=== PATIENT | female | born 1980 | race African-American/Black ===

== ENCOUNTER 2016-07-19 08:00 | Emergency (ER) | payer BC ==
[2016-07-19] MEDS ORDERED: KETOROLAC TROMETHAMINE 60 MG/2 ML SDV IM ONE (08:45)
--- NOTE | 2016-07-19 10:00 | ER Document Report ---
[id number] PAIN Mode of Arrival: Ambulatory Information source: Patient Notes: 35-year-old female presents with complaints of low back pain in the right flank rating across the left. Patient denies any urinary complaints denies any nausea vomiting or diarrhea Recent denies any neurological deficits TRAVEL OUTSIDE OF THE [place] IN LAST 30 DAYS: No - HPI Onset: Yesterday Onset/Duration: Persistent Quality of pain: Achy Severity: Mild Pain Level: 1 Associated symptoms: Other Exacerbated by: Movement Relieved by: Denies Similar symptoms previously: No Recently seen / treated by doctor: No - Related Data Allergies/Adverse Reactions: No Known Allergies Allergy (Verified 07/19/16 08:04) Past Medical History - Social History Smoking Status: Current Every Day Smoker Cigarette use (# per day): No Chew tobacco use (# tins/day): No Smoking Education Provided: No Frequency of alcohol use: Occasional Drug Abuse: None Family History: Reviewed & Not Pertinent Patient has suicidal ideation: No Patient has homicidal ideation: No - Immunizations Hx Diphtheria, Pertussis, Tetanus Vaccination: No Review of Systems - Review of Systems Notes: REVIEW OF SYSTEMS: CONSTITUTIONAL : Denies fever, chills, or sweats. Denies recent illness. EENT: Denies eye, ear, throat, or mouth pain or symptoms. Denies nasal or sinus congestion or discharge. Denies throat, tongue, or mouth swelling or difficulty swallowing. CARDIOVASCULAR: Denies chest pain. Denies palpitations or racing or irregular heart beat. Denies ankle edema. RESPIRATORY: Denies cough, cold, or chest congestion. Denies shortness of breath, difficulty breathing, or wheezing. GASTROINTESTINAL: Denies abdominal pain or distention. Denies nausea, vomiting , or diarrhea. Denies blood in vomitus, stools, or per rectum. Denies black, tarry stools. Denies constipation. GENITOURINARY: Denies difficulty urinating, painful urination, burning, frequency, blood in urine, or discharge. MUSCULOSKELETAL: Low back pain SKIN: Denies rash, lesions or sores. HEMATOLOGIC : Denies easy bruising or bleeding. LYMPHATIC: Denies swollen, enlarged glands. NEUROLOGICAL: Denies confusion or altered mental status. Denies passing out or loss of consciousness. Denies dizziness or lightheadedness. Denies headache. Denies weakness or paralysis or loss of use of either side. Denies problems with gait or speech. Denies sensory loss, numbness, or tingling. Denies seizures. PSYCHIATRIC: Denies anxiety or stress. Denies depression, suicidal ideation, or homicidal ideation. ALL OTHER SYSTEMS REVIEWED AND NEGATIVE. Dictation was performed using [employer] voice recognition software PHYSICAL EXAMINATION: GENERAL: Well-appearing, well-nourished and in no acute distress. HEAD: Atraumatic, normocephalic. EYES: Pupils equal round and reactive to light, extraocular movements intact, sclera anicteric, conjunctiva are normal. ENT: Nares patent, oropharynx clear without exudates. Moist mucous membranes. NECK: Normal range of motion, supple without lymphadenopathy LUNGS: Breath sounds clear to auscultation bilaterally and equal. No wheezes rales or rhonchi. HEART: Regular rate and rhythm without murmurs ABDOMEN: Soft, nontender, nondistended abdomen. No guarding, no rebound. No masses appreciated. Musculoskeletal: Normal range of motion, no pitting or edema. No cyanosis. NEUROLOGICAL: Cranial nerves grossly intact. Normal speech, normal gait. Normal sensory, motor exams PSYCH: Normal mood, normal affect. SKIN: Warm, Dry, normal turgor, no rashes or lesions noted. Physical Exam - Vital signs Vitals: Temp Pulse Resp BP Pulse Ox 97.5 F 67 18 128/67 H 96 07/19/16 08:06 07/19/16 08:06 07/19/16 08:06 07/19/16 08:06 07/19/16 08:06 Course - Re-evaluation Re-evalutation: 07/19/16 16:21 Patient noted to have back pain, there is no midline tenderness no urinary complaints no cauda equina concerns. Patient will be treated symptomatically and is otherwise stable. After performing a Medical Screening Examination, I estimate there is LOW risk for EXPANDING OR RUPTURED ABDOMINAL AORTIC ANEURYSM, CAUDA EQUINA SYNDROME, EPIDURAL MASS LESION, or HERNIATED DISK CAUSING SEVERE SPINAL STENOSIS, thus I consider the discharge disposition reasonable. The patient and I have discussed the diagnosis and risks, and we agree with discharging home and close follow-up. We also discussed returning to the Emergency Department immediately if new or worsening symptoms occur with the understanding that symptoms and presentations can change. We have discussed the symptoms which are most concerning (e.g., saddle anesthesia, urinary or bowel incontinence or retention , changing or worsening pain) that necessitate immediate return. 07/19/16 16:35 - Vital Signs Vital signs: Temp Pulse Resp BP Pulse Ox 98.1 F 84 20 118/70 99 07/19/16 10:00 07/19/16 10:00 07/19/16 10:00 07/19/16 10:00 07/19/16 10:00 Discharge - Discharge Clinical Impression: Back pain Qualifiers: Back pain location: low back pain Chronicity: acute Back pain laterality: bilateral Sciatica presence: without sciatica Qualified Code(s): M54.5 - Low back pain Condition: Stable Disposition: HOME, SELF-CARE Instructions: Low Back Pain ([facility]) Additional Instructions: Follow up with your physician tomorrow for further care or return to the ED IMMEDIATELY if symptoms worsen or new concerns occur Prescriptions: Acetaminophen with Codeine [Tylenol #3 Tablet] 1 each PO Q4HP PRN #14 tablet PRN Reason: Prednisone [Deltasone 20 mg Tablet] 3 tab PO DAILY 5 Days
[2016-07-19 10:20] VITALS: BP 118/70
== END 2016-07-19 10:00 | disposition home or self-care (01) ==
LOC: ER 08:00
DX: M54.5 Low back pain (principal); F17.210 Nicotine dependence, cigarettes, uncomplicated
CPT/HCPCS: 99283; 96372; J1885

== ENCOUNTER 2016-12-23 07:07 | Emergency (ER) | payer SELFPAY ==
[2016-12-23] MEDS ORDERED: PREDNISONE 20 MG TABLET PO ONE (07:52)
[2016-12-23] MEDS ORDERED: NAPROXEN 250 MG TABLET PO ONE (07:52)
--- NOTE | 2016-12-23 07:53 | ER Document Report ---
ED General Pain - General Chief Complaint: Low Back Pain Stated Complaint: BACK PAIN Time Seen by Provider: 12/23/16 07:29 Mode of Arrival: Ambulatory Information source: Patient Notes: Is a 36-year-old obese female who presents to the ER today for low back pain, worse on the right side radiating down the right leg 2 weeks, then started on the left leg 2 days ago. She denies any injury. She states that she has had low back pain before but has never had radiation down the legs. Pt denies any bowel or bladder incontinence, sexual dysfunction, history of IV drug use, history of cancer, history of high blood pressure, any new injury, fever, chills , numbness or tingling. TRAVEL OUTSIDE OF THE [place] IN LAST 30 DAYS: No - Related Data Allergies/Adverse Reactions: No Known Allergies Allergy (Verified 12/23/16 07:17) Past Medical History - General Information source: Patient - Social History Smoking Status: Current Every Day Smoker Chew tobacco use (# tins/day): No Frequency of alcohol use: None Drug Abuse: None Family History: Reviewed & Not Pertinent Patient has suicidal ideation: No Patient has homicidal ideation: No Renal/ Medical History: Denies: Hx Peritoneal Dialysis Past Surgical History: Reports: Hx Orthopedic Surgery - knee surg 1992 - Immunizations Hx Diphtheria, Pertussis, Tetanus Vaccination: No Review of Systems - Review of Systems Constitutional: No symptoms reported EENT: No symptoms reported Cardiovascular: No symptoms reported Respiratory: No symptoms reported Gastrointestinal: No symptoms reported Genitourinary: No symptoms reported Female Genitourinary: No symptoms reported Musculoskeletal: See HPI Skin: No symptoms reported Hematologic/Lymphatic: No symptoms reported Neurological/Psychological: No symptoms reported Physical Exam - Vital signs Vitals: Temp Pulse BP Pulse Ox 97.6 F 74 137/78 H 96 12/23/16 07:10 12/23/16 07:10 12/23/16 07:10 12/23/16 07:10 - Notes Notes: PHYSICAL EXAMINATION: GENERAL: Well-appearing, morbidly obese, and in no acute distress. HEAD: Atraumatic, normocephalic. EYES: Pupils equal round and reactive to light, extraocular movements intact, sclera anicteric, conjunctiva are normal. NECK: Normal range of motion, supple without lymphadenopathy LUNGS: CTAB and equal. No wheezes rales or rhonchi. HEART: Regular rate and rhythm without murmurs ABDOMEN: Soft, no tenderness. No guarding, no rebound BACK: Mild lumbar vertebral tenderness, bilateral SI joint tenderness, normal ROM some pain with rotation and flexion at hips, straight leg raise with pain bilaterally to hips GI/: no CVA tenderness EXTREMITIES: Normal range of motion, no pitting edema. No cyanosis. NEUROLOGICAL: Cranial nerves grossly intact. Normal sensory/motor exams. PSYCH: Normal mood, normal affect. SKIN: Warm, Dry, normal turgor, no rashes or lesions noted Course - Re-evaluation Re-evalutation: 12/23/16 09:21 SI joint x-rays reveal sacroiliitis, lumbar spine x-rays reveal degenerative spine 12/23/16 09:25 I have considered osteomyelitis, spinal epidural abscess, fracture, disc herniation, cord compression, cancer, AAA, retroperitoneal bleed, spinal epidural hematoma, and see no evidence to continue evaluation for these pathologies. - Vital Signs Vital signs: Temp Pulse Resp BP Pulse Ox 97.7 F 55 L 16 110/61 97 12/23/16 09:09 12/23/16 09:09 12/23/16 09:09 12/23/16 09:09 12/23/16 09:09 Discharge - Discharge Clinical Impression: Low back pain Qualifiers: Chronicity: acute Back pain laterality: bilateral Sciatica presence: with sciatica Sciatica laterality: bilateral sciatica Qualified Code(s): M54.42 - Lumbago with sciatica, left side Condition: Stable Disposition: HOME, SELF-CARE Instructions: Low Back Pain ([facility]), Ice Packs ([facility]), Warm Packs ([facility]) Additional Instructions: Return immediately for any new or worsening symptoms. Follow up with primary care provider, call tomorrow to make followup appointment. Prescriptions: Cyclobenzaprine HCl [Flexeril 10 mg Tablet] 10 mg PO TIDP PRN #15 tab PRN Reason: Naproxen 500 mg PO QID PRN #30 tablet PRN Reason: Prednisone 60 mg PO DAILY #15 tablet Forms: Return to Work
--- NOTE | 2016-12-23 08:47 | RADIOLOGY REPORT (SQ) ---
EXAM DESCRIPTION: L SPINE WHOLE COMPLETED DATE/TIME: 12/23/2016 8:30 am REASON FOR STUDY: low back pain, sciatic tenderness COMPARISON: None. NUMBER OF VIEWS: Three views. TECHNIQUE: AP, lateral and sacral radiographic images acquired of the lumbar spine. LIMITATIONS: None. FINDINGS: MINERALIZATION: Normal. SEGMENTATION: Partial sacralization of the S1 level. ALIGNMENT: Normal. VERTEBRAE: Maintained height. No fracture or worrisome bone lesion. DISCS: Mild multilevel degenerative disc disease. POSTERIOR ELEMENTS: Pedicles and facets are intact. No pars defect or posterior arch defects. HARDWARE: None in the spine. PARASPINAL SOFT TISSUES: Normal. PELVIS: Intact as visualized. No fractures or worrisome bone lesions. SI joints intact. OTHER: No other significant finding. 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 NO ACUTE OSSEOUS ABNORMALITY. TECHNICAL DOCUMENTATION: JOB ID: [id number] All Rights Reserved
--- NOTE | 2016-12-23 08:48 | RADIOLOGY REPORT (SQ) ---
EXAM DESCRIPTION: SACROILIAC JOINTS 3 OR MORE COMPLETED DATE/TIME: 12/23/2016 8:30 am REASON FOR STUDY: low back pain, sciatic tenderness COMPARISON: None. NUMBER OF VIEWS: Three views. TECHNIQUE: AP and oblique views of the sacroiliac joints. LIMITATIONS: None. FINDINGS: MINERALIZATION: Normal. BONES: No acute fracture or dislocation. No worrisome bone lesions. No significant osteophytes. JOINTS: The sacroiliac joints are patent. Mild sclerosis bilaterally compatible with sacroiliitis. SOFT TISSUES: No soft tissue swelling. No radio-opaque foreign body. OTHER: No other significant finding. IMPRESSION: MILD BILATERAL SACROILIITIS. NO ACUTE OSSEOUS ABNORMALITY. TECHNICAL DOCUMENTATION: JOB ID: [id number] [employer]- All Rights Reserved
[2016-12-23 09:11] VITALS: BP 110/61
[2016-12-23] MEDS ORDERED: CYCLOBENZAPRINE HCL 10 MG TABLET PO ONE (09:14)
== END 2016-12-23 09:21 | disposition home or self-care (01) ==
LOC: ER 07:07
DX: M54.42 Lumbago with sciatica, left side (principal); M54.41 Lumbago with sciatica, right side; M46.1 Sacroiliitis, not elsewhere classified; M47.9 Spondylosis, unspecified; F17.200 Nicotine dependence, unspecified, uncomplicated
CPT/HCPCS: 99283; 72110; 72202; J7512

== ENCOUNTER 2019-01-05 09:52 | Inpatient (IN) | payer BC ==
[2019-01-05] MEDS ORDERED: METHYLPREDNISOLONE INJ 125 MG/2 ML SDV IV ONE (10:07)
[2019-01-05] MEDS ORDERED: IPRATROPIUM/ALBUTEROL 0.5-2.5 MG/3 ML AMPUL NEB ONE ×4 (10:07→11:39)
[2019-01-05] MEDS ORDERED: NORMAL SALINE 1000 ML 1,000 ML IV ONE (10:11)
[2019-01-05] MEDS ORDERED: ONDANSETRON HCL INJ/PF 4 MG/2 ML SDV IV ONE (10:11)
--- NOTE | 2019-01-05 10:14 | ER Document Report ---
ED Medical Screen (RME) - General Chief Complaint: Nausea/Vomiting Stated Complaint: FEVER TRAVEL OUTSIDE OF THE [place] IN LAST 30 DAYS: No - HPI Notes: 01/05/19 10:11 Patient is a 38-year-old female no significant past medical history who presents for primary complaints of mid abdominal pain with associated nausea and vomiting over the past 4 days and intermittent fever. Patient states that she also has a dry cough with some wheezing. Patient states that she does not feel short of breath or have any dyspnea on exertion or chest pain. She is urinating normally and having normal bowel movements. Denies MARSH, neck pain, CP, SOB, dysuria, back pain, or rash. I have treated and performed a rapid initial assessment of this patient. A comprehensive ED assessment and evaluation of the patient, analysis of test results and completion of medical decision making process will be conducted by additional ED providers. PHYSICAL EXAMINATION: GENERAL: Well-appearing, well-nourished and in no acute distress. A&Ox4. Answers questions appropriately. LUNGS: scant wheezing b/l lower lung au. no retractions. HEART: Regular rate and rhythm without murmurs, rubs, gallops. ABDOMEN: Soft, nondistended abdomen. No guarding, no rebound. Normal bowel sounds present. No CVA tenderness bilaterally. + mid/upper abd tenderness (cannot elicit thorough abd exam w/o bed, however). Extremities: No cyanosis, clubbing, or edema b/l. Evert neg b/l. NEUROLOGICAL: Normal speech, normal gait. PSYCH: Normal mood, normal affect. - Related Data Allergies/Adverse Reactions: No Known Allergies Allergy (Verified 01/05/19 09:53) Past Medical History - Social History Chew tobacco use (# tins/day): No Frequency of alcohol use: None Drug Abuse: None Renal/ Medical History: Denies: Hx Peritoneal Dialysis Past Surgical History: Reports: Hx Orthopedic Surgery - knee surg 1992 - Immunizations Hx Diphtheria, Pertussis, Tetanus Vaccination: No Physical Exam - Vital signs Vitals: Temp Pulse Resp BP Pulse Ox 97.7 F 107 H 24 H 149/67 H 92 01/05/19 09:58 01/05/19 09:58 01/05/19 09:58 01/05/19 09:58 01/05/19 09:58 Course - Vital Signs Vital signs: Temp Pulse Resp BP Pulse Ox 97.7 F 107 H 24 H 149/67 H 92 01/05/19 09:58 01/05/19 09:58 01/05/19 09:58 01/05/19 09:58 01/05/19 09:58
[2019-01-05 11:21] LABS: ABSOLUTE BASOPHILS # (AUTO) 0.1 10^3/uL (0.0-0.2); ABSOLUTE EOSINOPHILS # (AUTO) 0.1 10^3/uL (0.0-0.6); ABSOLUTE LYMPHOCYTES (AUTO) 0.8 10^3/uL (0.5-4.7); ABSOLUTE MONOCYTES (AUTO) 0.7 10^3/uL (0.1-1.4); ABSOLUTE NEUT (AUTO) 12.9 10^3/uL (1.7-8.2); BASOPHILS % (AUTO) 0.4 % (0-2); EOSINOPHILS % (AUTO) 0.4 % (0-6); HEMATOCRIT 43.7 % (36.0-47.0); HEMOGLOBIN 14.8 g/dL (12.0-15.5); LYMPHOCYTES % (AUTO) 5.6 % (13-45); MEAN CORPUSCULAR HEMOGLOBIN 29.4 pg (27.0-33.4); MEAN CORPUSCULAR HGB CONC 33.8 g/dL (32.0-36.0); MEAN CORPUSCULAR VOLUME 87 fl (80-97); MONOCYTES % (AUTO) 4.9 % (3-13); PLATELET COUNT 215 10^3/uL (150-450); RED BLOOD COUNT 5.03 10^6/uL (3.72-5.28); RED CELL DISTRIBUTION WIDTH 14.3 % (11.5-14.0); SEGMENTED NEUTROPHILS % (AUTO) 88.7 % (42-78); TOTAL CELLS COUNTED % (AUTO) 100 %; VENOUS BLOOD BASE EXCESS 4.9 mmol/L; VENOUS BLOOD HCO3 31.2 mmol/L (20-32); VENOUS BLOOD PCO2 52.2 mmHg (35-63); VENOUS BLOOD PH 7.4 (7.30-7.42); WHITE BLOOD COUNT 14.6 10^3/uL (4.0-10.5)
[2019-01-05 11:32] LABS: APPEARANCE,URINE CLEAR; BILIRUBIN,URINE NEGATIVE (NEGATIVE); COLOR,URINE AMBER; GLUCOSE, URINE NEGATIVE (NEGATIVE); KETONES,URINE TRACE mg/dL (NEGATIVE); LEUKOCYTE ESTERASE,URINE NEGATIVE (NEGATIVE); NITRITE,URINE NEGATIVE (NEGATIVE); PROTEIN,URINE 100 mg/dL (NEGATIVE)
[2019-01-05 11:41] LABS: ALANINE AMINOTRANSFERASE 22 U/L (9-52); ALBUMIN 3.3 g/dL (3.5-5.0); ALKALINE PHOSPHATASE 68 U/L (38-126); ANION GAP 7 (5-19); ASPARTATE AMINO TRANSFERASE 30 U/L (14-36); BILIRUBIN,DIRECT 0.2 mg/dL (0.0-0.4); BILIRUBIN,TOTAL 0.4 mg/dL (0.2-1.3); BLOOD UREA NITROGEN 7 mg/dL (7-20); CALCIUM 8.8 mg/dL (8.4-10.2); CARBON DIOXIDE 31 mmol/L (22-30); CHLORIDE 101 mmol/L (98-107); GLUCOSE 119 mg/dL (75-110); LIPASE 12.9 U/L (23-300); POTASSIUM 4.1 mmol/L (3.6-5.0); SODIUM 139.1 mmol/L (137-145); TOTAL PROTEIN 6.4 g/dL (6.3-8.2)
--- NOTE | 2019-01-05 11:55 | RADIOLOGY REPORT (SQ) ---
EXAM DESCRIPTION: CHEST SINGLE VIEW COMPLETED DATE/TIME: 01/05/2019 11:43 am REASON FOR STUDY: sob COMPARISON: 02/17/2010 EXAM PARAMETERS: NUMBER OF VIEWS: One view. TECHNIQUE: Single frontal radiographic view of the chest acquired. RADIATION DOSE: NA LIMITATIONS: None. FINDINGS: LUNGS AND PLEURA: Diffuse parenchymal opacities in the right lung. There is a rounded den sity in the left lung measuring 4.7 cm. No effusions. MEDIASTINUM AND HILAR STRUCTURES: No masses. Contour normal. HEART AND VASCULAR STRUCTURES: Heart normal in size. Normal vasculature. BONES: No acute findings. HARDWARE: None in the chest. OTHER: No other significant finding. IMPRESSION: Diffuse right lung pneumonia. Poorly defined mass versus round pneumonia on the left. TECHNICAL DOCUMENTATION: JOB ID: [id number] [employer]- All Rights Reserved Reading location - IP/workstation name: [email or web address]
[2019-01-05] MEDS ORDERED: AZITHROMYCIN 500 MG in DEXTROSE 5%-WATER 250 ML IV SCH (14:00)
[2019-01-05] MEDS ORDERED: CEFTRIAXONE 1 GM/D5W RTU 1 GM/50 ML RTUPB IV SCH (14:15)
--- NOTE | 2019-01-05 14:59 | ER Document Report ---
Entered by ELHAM PACK SCRIBE 01/05/19 1154 Acting as scribe for:KANDICE DELGADO DO ED General - General Chief Complaint: Nausea/Vomiting Stated Complaint: FEVER Time Seen by Provider: 01/05/19 10:14 Mode of Arrival: Ambulatory Information source: Patient Notes: Patient is a 38-year-old female presenting to the emergency department complaining of multiple symptoms including fevers, cough, wheezing and post tussive emesis onset 3 days ago. Patient states "I feel like shit". She states she has had fevers of 101.0 and 102.0 and reports taking Tylenol. She states she has also used her son's breathing treatments to help her cough and wheezing and further states the breathing treatments helped "bring up phlegm". She also complains of abdominal pain but attributes this to frequently coughing. She denies any diarrhea, sore throat, rhinorrhea, earaches or muscle aches. TRAVEL OUTSIDE OF THE [place] IN LAST 30 DAYS: No - Related Data Allergies/Adverse Reactions: No Known Allergies Allergy (Verified 01/05/19 09:53) Past Medical History - General Information source: Patient - Social History Smoking Status: Current Every Day Smoker Cigarette use (# per day): Yes Chew tobacco use (# tins/day): No Frequency of alcohol use: None Drug Abuse: None Family History: Reviewed & Not Pertinent Patient has suicidal ideation: No Patient has homicidal ideation: No Past Surgical History: Reports: Hx Orthopedic Surgery - Immunizations Hx Diphtheria, Pertussis, Tetanus Vaccination: No Review of Systems - Review of Systems Constitutional: See HPI EENT: No symptoms reported Cardiovascular: No symptoms reported Respiratory: See HPI, Cough, Wheezing Gastrointestinal: See HPI, Vomiting - post tussive Genitourinary: No symptoms reported Female Genitourinary: No symptoms reported Musculoskeletal: No symptoms reported Skin: No symptoms reported Hematologic/Lymphatic: No symptoms reported Neurological/Psychological: No symptoms reported -: Yes All other systems reviewed and negative Physical Exam - Vital signs Vitals: Temp Pulse Resp BP Pulse Ox 97.7 F 107 H 24 H 149/67 H 92 01/05/19 09:58 01/05/19 09:58 01/05/19 09:58 01/05/19 09:58 01/05/19 09:58 - Notes Notes: GENERAL: Alert, interacts well. Appears somewhat uncomfortable. Obese HEAD: Normocephalic, atraumatic. EYES: Pupils equal, round, and reactive to light. Extraocular movements intact. ENT: Oral mucosa moist, tongue midline, cobblestoning in the posterior orophraynx. Clear fluid behind right TM. Thick white mucous from the nostrils bilaterally. NECK: Full range of motion. Supple. Trachea midline. LUNGS: Diffuse expiratory wheezes. No rales or rhonchi. Wet cough, requiring 2 L oxygen via nasal cannula to maintain saturation 92%. HEART: Regular rate and rhythm. No murmurs, gallops, or rubs. ABDOMEN: Soft, non-tender. Non-distended. Bowel sounds present in all 4 quadrants. No guarding, rigidity, or rebound. EXTREMITIES: Moves all 4 extremities spontaneously. No edema, radial and dorsalis pedis pulses 2/4 bilaterally. No cyanosis. NEUROLOGICAL: Alert and oriented x3. Normal speech. PSYCH: Normal affect, normal mood. SKIN: Warm, dry, normal turgor. No rashes or lesions noted. Course - Re-evaluation Re-evalutation: 01/05/19 14:57 CBC shows leukocytosis of 14.6, platelets normal, blood gas unremarkable, CMP sh ows slightly elevated glucose at 119, proBNP mildly elevated at 613 although presentation and x-rays are not consistent with congestive heart failure, lipase normal, urinalysis shows trace ketones, patient is being hydrated, chest x-ray shows round pneumonia on the right and hazy ill-defined density on the left that could be mass versus pneumonia. Patient is being treated with dual antibiotic therapy, she is hypoxic so she has required 2 L via nasal cannula despite 3 breathing treatments despite 4 breathing treatments and steroids. Contrasted CAT scan of the chest was ordered to better define the density on her left lung. Patient was discussed with Dr. Pizano who agrees to accept the patient to his service in the [facility]. - Vital Signs Vital signs: Temp Pulse Resp BP Pulse Ox 97.9 F 94 18 140/78 H 95 01/05/19 16:53 01/05/19 17:05 01/05/19 17:05 01/05/19 16:53 01/05/19 17:05 - Laboratory Result Diagrams: 01/05/19 11:09 01/05/19 11:09 Laboratory results interpreted by me: 01/05/19 01/05/19 01/05/19 11:09 11:09 11:09 WBC 14.6 H RDW 14.3 H Seg Neutrophils % 88.7 H Lymphocytes % 5.6 L Absolute Neutrophils 12.9 H Carbon Dioxide 31 H Glucose 119 H NT-Pro-B Natriuret Pep 613 H Albumin 3.3 L Lipase 12.9 L Urine Protein Urine Ketones Urine Urobilinogen 01/05/19 11:09 WBC RDW Seg Neutrophils % Lymphocytes % Absolute Neutrophils Carbon Dioxide Glucose NT-Pro-B Natriuret Pep Albumin Lipase Urine Protein 100 H Urine Ketones TRACE H Urine Urobilinogen 4.0 H - EKG Interpretation by Me Additional EKG results interpreted by me: 01/05/19 14:58 EKG shows sinus tachycardia at a rate of 101, normal axis, normal intervals, no ST segment elevations or depressions, T wave flattening in lead III which is nonspecific, no T wave inversions per my interpretation. Critical Care Note - Critical Care Note Total time excluding time spent on procedures (mins): 40 Discharge - Discharge Clinical Impression: Acute respiratory failure with hypoxia Bilateral pneumonia Qualifiers: Pneumonia type: due to unspecified organism Lung location: upper lobe of lung Qualified Code(s): J18.1 - Lobar pneumonia, unspecified organism Condition: Fair Disposition: ADMITTED INPATIENT Admitting Provider: Jerica (Hospitalist) Unit Admitted: IMCU I personally performed the services described in the documentation, reviewed and edited the documentation which was dictated to the scribe in my presence, and it accurately records my words and actions.
--- NOTE | 2019-01-05 15:22 | RADIOLOGY REPORT (SQ) ---
EXAM DESCRIPTION: CT CHEST WITH COMPLETED DATE/TIME: 01/05/2019 3:05 pm REASON FOR STUDY: lung mass COMPARISON: Earlier radiograph TECHNIQUE: CT scan of the chest performed using helical scanning technique with dynamic intravenous contrast injection. Images reviewed with lung, soft tissue and bone windows. Reconstructed coronal and sagittal MPR and MIP images reviewed. All images stored on PACS. All CT scanners at this facility use dose modulation, iterative reconstruction, and/or weight based d osing when appropriate to reduce radiation dose to as low as reasonably achievable (ALARA). [facility]: Dose Right [facility]: CareDose [facility]: Dose Right [facility]: Teradose 4D [facility]: Xiaoying CONTRAST TYPE AND DOSE: contrast/concentration: Isovue 350.00 mg/ml; Total Contrast Delivered: 80.0 ml; Total Saline Delivered: 55.0 ml RENAL FUNCTION: GFR > 60. RADIATION DOSE: CT Rad equipment meets quality standard of care and radiation dose reduction techniq ues were employed. CTDIvol: 21.1 mGy. DLP: 768 mGy-cm. . LIMITATIONS: None. FINDINGS: LUNGS AND PLEURA: Bilateral patchy consolidation involving both upper and lower lobes, mor e confluent in the left parahilar region. No pneumothorax. No effusions. HILAR AND MEDIASTINAL STRUCTURES: Reactive nodes. HEART AND VASCULAR STRUCTURES: No aneurysm or dissection. No central pulmonary emboli. No pericardi al effusion. HARDWARE: None in the chest. UPPER ABDOMEN: No significant findings. Limited exam. THYROID AND OTHER SOFT TISSUES: No masses. No adenopathy. BONES: No significant finding. OTHER: No other significant finding. IMPRESSION: Bilateral patchy consolidation involving both upper and lower lobes, more confluent in t he left parahilar region. No mass identified. TECHNICAL DOCUMENTATION: JOB ID: [id number] Quality ID # [id number]: Final reports with documentation of one or more dose reduction techniques (e.g., Au tomated exposure control, adjustment of the mA and/or kV according to patient size, use of iterative reconstruction technique) 2010 [employer]- All Rights Reserved Reading location - IP/workstation name: [email or web address]
[2019-01-05] MEDS ORDERED: ACETAMINOPHEN 325 MG TABLET PO PRN (15:59)
--- NOTE | 2019-01-05 16:35 | PDOC H&P ---
History of Present Illness Admission Date/PCP: 01/05/19 15:05 Patient complains of: cough, SOB History of Present Illness: NELAI NAQVI is a 38 year old female with no significant past medical history aside from a history of chronic smoking and GERD who presented with productive cough and shortness of breath. Patient says that she has been apparently fine until the past 3 days when she started developing increasingly productive cough with yellowish sputum. This was associated with progressive shortness of breath. She also reported having wheezing, fever and chills at home. Patient denies recent hospitalization. 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 Denies recent sick contacts in the family. In the ER, she was noted to be tachypneic, tachycardic and wheezy. Her sats were as low as 90% on room air. She was placed on nasal cannula. She got breathing treatments and IV steroids and she did say she got relief from them. Chest x-ray shows bilateral pneumonia, questionable left-sided mass. Chest CT was pursued and showed extensive multifocal pneumonia. Upon encounter, she appears more comfortable and says that she feels better after the breathing t reatments. Past Surgical History Past Surgical History: Reports: Orthopedic Surgery Social History Smoking Status: Current Every Day Smoker Family History Family History: Reviewed & Not Pertinent Parental Family History Reviewed: Yes - no premature CAD Children Family History Reviewed: No Sibling(s) Family History Reviewed.: No Medication/Allergy Home Medications: No Home Medications 01/05/19 Allergies/Adverse Reactions: No Known Allergies Allergy (Verified 01/05/19 09:53) Review of Systems All systems: reviewed and no additional remarkable complaints except as stated - as mentioned in HPI Physical Exam Vital Signs: Temp Pulse Resp BP Pulse Ox 97.7 F 107 H 24 H 149/67 H 91 L 01/05/19 09:58 01/05/19 09:58 01/05/19 09:58 01/05/19 09:58 01/05/19 11:38 Intake & Output 01/04/19 01/05/19 01/06/19 06:59 06:59 06:59 Weight 312 lb 6.32 oz General appearance: PRESENT: no acute distress, well-developed, well-nourished Head exam: PRESENT: atraumatic, normocephalic Eye exam: PRESENT: conjunctiva pink, EOMI, PERRLA. ABSENT: scleral icterus Ear exam: PRESENT: normal external ear exam Mouth exam: PRESENT: moist, tongue midline Neck exam: ABSENT: carotid bruit, JVD, lymphadenopathy, thyromegaly Respiratory exam: PRESENT: rales, rhonchi. ABSENT: wheezes Cardiovascular exam: PRESENT: RRR. ABSENT: diastolic murmur, rubs, systolic murmur Pulses: PRESENT: normal dorsalis pedis pul GI/Abdominal exam: PRESENT: normal bowel sounds, soft. ABSENT: distended, guarding, mass, organolmegaly, rebound, tenderness Rectal exam: PRESENT: deferred Extremities exam: PRESENT: full ROM. ABSENT: calf tenderness, clubbing, pedal edema Neurological exam: PRESENT: alert, awake, oriented to person, oriented to place, oriented to time, oriented to situation, CN II-XII grossly intact. ABSENT: motor sensory deficit Results Laboratory Results: 01/05/19 11:09 01/05/19 11:09 01/05/19 01/05/19 01/05/19 11:09 11:09 11:09 WBC 14.6 H RBC 5.03 Hgb 14.8 Hct 43.7 MCV 87 MCH 29.4 MCHC 33.8 RDW 14.3 H Plt Count 215 Seg Neutrophils % 88.7 H Lymphocytes % 5.6 L Monocytes % 4.9 Eosinophils % 0.4 Basophils % 0.4 Absolute Neutrophils 12.9 H Absolute Lymphocytes 0.8 Absolute Monocytes 0.7 Absolute Eosinophils 0.1 Absolute Basophils 0.1 VBG pH VBG pCO2 VBG HCO3 VBG Base Excess Sodium 139.1 Potassium 4.1 Chloride 101 Carbon Dioxide 31 H Anion Gap 7 BUN 7 Creatinine 0.65 Est GFR ( Amer) > 60 Est GFR (Non-Af Amer) > 60 Glucose 119 H Lactic Acid 1.1 Calcium 8.8 Total Bilirubin 0.4 AST 30 ALT 22 Alkaline Phosphatase 68 Total Protein 6.4 Albumin 3.3 L Lipase 12.9 L Urine Color Urine Appearance Urine pH Ur Specific Justice Urine Protein Urine Glucose (UA) Urine Ketones Urine Blood Urine Nitrite Ur Leukocyte Esterase Urine WBC (Auto) Urine RBC (Auto) 01/05/19 01/05/19 11:09 11:09 WBC RBC Hgb Hct MCV MCH MCHC RDW Plt Count Seg Neutrophils % Lymphocytes % Monocytes % Eosinophils % Basophils % Absolute Neutrophils Absolute Lymphocytes Absolute Monocytes Absolute Eosinophils Absolute Basophils VBG pH 7.40 VBG pCO2 52.2 VBG HCO3 31.2 VBG Base Excess 4.9 Sodium Potassium Chloride Carbon Dioxide Anion Gap BUN Creatinine Est GFR ( Amer) Est GFR (Non-Af Amer) Glucose Lactic Acid Calcium Total Bilirubin AST ALT Alkaline Phosphatase Total Protein Albumin Lipase Urine Color LORI Urine Appearance CLEAR Urine pH 7.0 Ur Specific Justice 1.020 Urine Protein 100 H Urine Glucose (UA) NEGATIVE Urine Ketones TRACE H Urine Blood NEGATIVE Urine Nitrite NEGATIVE Ur Leukocyte Esterase NEGATIVE Urine WBC (Auto) 1 Urine RBC (Auto) 6 01/05/19 11:09 NT-Pro-B Natriuret Pep 613 H Impressions: Chest X-Ray 01/05/19 10:06 IMPRESSION: Diffuse right lung pneumonia. Poorly defined mass versus round pneumonia on the left. Chest CT 01/05/19 14:25 IMPRESSION: Bilateral patchy consolidation involving both upper and lower lobes, more confluent in the left parahilar region. No mass identified. Assessment and Plan - Diagnosis (1) Acute respiratory failure with hypoxia Is this a current diagnosis for this admission?: Yes Plan: Currently saturating at 94 to 95% on nasal cannula. Secondary to multifocal pneumonia. (2) Multifocal pneumonia Is this a current diagnosis for this admission?: Yes Plan: Likely community-acquired. Noted chest CT results. Will continue azithromycin and Rocephin. Add scheduled breathing treatments. Will also order sputum cul ture. - Time Time Spent with patient: 25-34 minutes
--- NOTE | 2019-01-05 16:37 | ADVANCED CARE ---
- Diagnosis (1) Acute respiratory failure with hypoxia Diagnosis Current: Yes (2) Multifocal pneumonia Diagnosis Current: Yes Resuscitation Status: Full Code Discussion: Discussed with patient. She says she is a full code and prefers chest compressions, defibrillation and mechanical ventilation if the need arises. She says that her surrogate medical decision makers include her mother, son and her who are all in the bedside. She says that her , Papi will be her primary surrogate decision-maker.
[2019-01-05] MEDS ORDERED: AZITHROMYCIN INJ 500 MG VIAL IV ONE (16:54)
[2019-01-05] MEDS: IPRATROPIUM/ALBUTEROL 0.5-2.5 MG/3 ML AMPUL NEB SCH ×2 (17:03→20:26)
--- NOTE | 2019-01-05 18:39 | EKG REPORT ---
SEVERITY:- OTHERWISE NORMAL ECG - SINUS TACHYCARDIA : Confirmed by: Lynn Francisco MD 05-Jan-2019 18:39:21
[2019-01-05] MEDS: PREDNISONE 20 MG TABLET PO SCH (18:47)
[2019-01-05] MEDS: NORMAL SALINE 1000 ML 1,000 ML IV PRN (19:41)
[2019-01-05] MEDS: HEPARIN SOD (PORCINE) 5,000 UNIT/ML 1 ML SYRINGE SUBCUT SCH (22:07)
[2019-01-06] MEDS: IPRATROPIUM/ALBUTEROL 0.5-2.5 MG/3 ML AMPUL NEB SCH ×7 (00:11→23:55)
[2019-01-06] MEDS ORDERED: NICOTINE 14 MG/24 HR PATCH.TD24 TD PRN (02:22)
[2019-01-06] MEDS: TRAZODONE HCL 50 MG TABLET PO PRN (02:37)
[2019-01-06] MEDS: PREDNISONE 20 MG TABLET PO SCH ×2 (09:08→17:15)
[2019-01-06] MEDS: CEFTRIAXONE 1 GM/D5W RTU 1 GM/50 ML RTUPB IV SCH (09:12)
[2019-01-06] MEDS: HEPARIN SOD (PORCINE) 5,000 UNIT/ML 1 ML SYRINGE SUBCUT SCH ×2 (09:13→22:01)
[2019-01-06] MEDS ORDERED: AZITHROMYCIN INJ 500 MG VIAL IV SCH (10:00)
--- NOTE | 2019-01-06 13:11 | PDOC PROGRESS REPORT ---
Subjective Progress Note for:: 01/06/19 Subjective:: This is a 38 year old female with no significant past medical history aside from a history of chronic smoking and GERD who presented with productive cough and shortness of breath. She was admitted to the acute hypoxic respiratory failure secondary to extensive multifocal pneumonia. No acute overnight. She is saturating well on nasal cannula. She says that her shortness of breath has slightly improved today. Denies chest pain. No fever chills. Reason For Visit: ACUTE HYPOXIC RESPIRATORY FAILURE,MULTIFOCAL Physical Exam Vital Signs: Temp Pulse Resp BP Pulse Ox 98.2 F 92 18 124/54 L 93 01/06/19 03:14 01/06/19 11:59 01/06/19 11:59 01/06/19 03:14 01/06/19 11:59 Intake & Output 01/05/19 01/06/19 01/07/19 06:59 06:59 06:59 Intake Total 1640 Balance 1640 Weight 311 lb 15.265 oz General appearance: PRESENT: no acute distress, well-developed, well-nourished Head exam: PRESENT: atraumatic, normocephalic Eye exam: PRESENT: conjunctiva pink, EOMI, PERRLA. ABSENT: scleral icterus Ear exam: PRESENT: normal external ear exam Mouth exam: PRESENT: moist, tongue midline Neck exam: ABSENT: carotid bruit, JVD, lymphadenopathy, thyromegaly Respiratory exam: PRESENT: crackles, rales, rhonchi. ABSENT: wheezes Cardiovascular exam: PRESENT: RRR. ABSENT: diastolic murmur, rubs, systolic murmur Pulses: PRESENT: normal dorsalis pedis pul GI/Abdominal exam: PRESENT: normal bowel sounds, soft. ABSENT: distended, guarding, mass, organolmegaly, rebound, tenderness Rectal exam: PRESENT: deferred Neurological exam: PRESENT: alert, awake, oriented to person, oriented to place, oriented to time, oriented to situation, CN II-XII grossly intact. ABSENT: motor sensory deficit Results Laboratory Results: 01/05/19 11:09 01/05/19 11:09 01/05/19 11:09 NT-Pro-B Natriuret Pep 613 H Impressions: Chest X-Ray 01/05/19 10:06 IMPRESSION: Diffuse right lung pneumonia. Poorly defined mass versus round pneumonia on the left. Chest CT 01/05/19 14:25 IMPRESSION: Bilateral patchy consolidation involving both upper and lower lobe s, more confluent in the left parahilar region. No mass identified. Assessment and Plan - Diagnosis (1) Acute respiratory failure with hypoxia Is this a current diagnosis for this admission?: Yes Plan: Currently saturating at 94 to 95% on nasal cannula. Secondary to multifocal pneumonia. 01/06: She says her shortness of breath has slightly improved today. Saturating well on nasal cannula. (2) Multifocal pneumonia Is this a current diagnosis for this admission?: Yes Plan: Likely community-acquired. Noted chest CT results. Azithromycin and Rocephin. Add scheduled breathing treatments. Will also order sputum culture. 01/06: Continue IV antibiotics. Continue scheduled breathing treatments. Sputum culture pending. - Time Time Spent with patient: 15-24 minutes
[2019-01-06] MEDS: NORMAL SALINE 1000 ML 1,000 ML IV PRN (22:20)
[2019-01-07] MEDS: TRAZODONE HCL 50 MG TABLET PO PRN ×2 (00:55→21:57)
[2019-01-07] MEDS: IPRATROPIUM/ALBUTEROL 0.5-2.5 MG/3 ML AMPUL NEB SCH ×6 (03:49→23:56)
--- NOTE | 2019-01-07 09:31 | PDOC PROGRESS REPORT ---
Subjective Progress Note for:: 01/07/19 Subjective:: 38 year old female with no significant past medical history aside from a history of chronic smoking and GERD who presented with productive cough and shortness of breath. She was admitted to the acute hypoxic respiratory failure secondary to extensive multifocal pneumonia. No acute overnight. She is saturating well on nasal cannula. She says that her shortness of breath has slightly improved today. Denies chest pain. No fever chills. 01/[id number]-hifm-old female admitted with multifocal pneumonia afebrile. Blood cultures are negative sputum culture is spelt still pending. Pulse oxes 92% on 3 L. Presently on ceftriaxone and azithromycin. No acute events in the last 24 hours. T-max is 97.9. Heart rate is 102. Afebrile. Plan is to repeat the [facility] x-ray tomorrow and labs prior to discharge. Reason For Visit: ACUTE HYPOXIC RESPIRATORY FAILURE,MULTIFOCAL Physical Exam Vital Signs: Temp Pulse Resp BP Pulse Ox 97.9 F 82 18 130/58 H 92 01/07/19 03:44 01/07/19 07:58 01/07/19 07:58 01/07/19 03:44 01/07/19 07:58 Intake & Output 01/06/19 01/07/19 01/08/19 06:59 06:59 06:59 Intake Total 1760 1991 Balance 1760 1991 Weight 141.5 kg 143.7 kg General appearance: PRESENT: no acute distress, morbidly obese Head exam: PRESENT: atraumatic Eye exam: PRESENT: PERRLA Ear exam: PRESENT: normal external ear exam Mouth exam: PRESENT: moist, tongue midline Teeth exam: PRESENT: poor dentation Neck exam: ABSENT: carotid bruit, JVD, lymphadenopathy, thyromegaly Respiratory exam: PRESENT: clear to auscultation idania. ABSENT: rales, rhonchi, wheezes Cardiovascular exam: PRESENT: tachycardia GI/Abdominal exam: PRESENT: normal bowel sounds, soft. ABSENT: distended, guarding, mass, organolmegaly, rebound, tenderness Rectal exam: PRESENT: deferred Extremities exam: PRESENT: full ROM. ABSENT: calf tenderness, clubbing, pedal edema Neurological exam: PRESENT: alert, awake, oriented to person, oriented to place, oriented to time, oriented to situation, CN II-XII grossly intact. ABSENT: motor sensory deficit Psychiatric exam: PRESENT: appropriate affect, normal mood. ABSENT: homicidal ideation, suicidal ideation Results Laboratory Results: 01/05/19 11:09 01/05/19 11:09 01/05/19 11:09 NT-Pro-B Natriuret Pep 613 H Impressions: Chest X-Ray 01/05/19 10:06 IMPRESSION: Diffuse right lung pneumonia. Poorly defined mass versus round pneumonia on the left. Chest CT 01/05/19 14:25 IMPRESSION: Bilateral patchy consolidation involving both upper and lower lobes, more confluent in the left parahilar region. No mass identified. Assessment and Plan - Diagnosis (1) Acute respiratory failure with hypoxia Is this a current diagnosis for this admission?: Yes Plan: Currently saturating at 94 to 95% on nasal cannula. Secondary to multifocal pneumonia. 01/06: She says her shortness of breath has slightly improved today. Saturating well on nasal cannula. 01/07/2019-patient admitted with acute respiratory failure with hypoxia most likely secondary to multifocal pneumonia. Improving. Pulse ox is 92% on 3 L this morning. Comfortable in the bed communicating well. plan is to continue the present management for now. (2) Multifocal pneumonia Is this a current diagnosis for this admission?: Yes Plan: Likely community-acquired. Noted chest CT results. Azithromycin and Rocephin. Add scheduled breathing treatments. Will also order sputum culture. 01/06: Continue IV antibiotics. Continue scheduled breathing treatments. Sputum culture pending. 01/07/2019-patient is admitted with multifocal pneumonia presently on azithromycin and IV Rocephin receiving scheduled breathing treatments. Sputum culture is pending blood cultures are negative. Plan is to repeat the chest x- ray and labs tomorrow. Pneumonia most likely community-acquired and most likely gram-positive organisms are responsible. (3) Morbid obesity with BMI of 50.0-59.9, adult Is this a current diagnosis for this admission?: No Plan: 01/07 2019-patient's BMI is more than 51 diet exercise weight loss lifestyle modifications are discussed with the patient dietary consult is going to be requested. (4) Tobacco abuse Is this a current diagnosis for this admission?: No Plan: 01/07/2019-patient has history of tobacco abuse she is smoking for the last 5 years close to 1 pack/day smoking counseling was provided for more than 10 minutes strongly advised to quit smoking. Placed on nicotine patch 21 mg daily. - Time Time Spent with patient: 25-34 minutes Smoking Cessation Education: over 10 minutes Medications reviewed and adjusted accordingly: Yes Anticipated discharge: Home
[2019-01-07] MEDS: PREDNISONE 20 MG TABLET PO SCH (09:33)
[2019-01-07] MEDS: HEPARIN SOD (PORCINE) 5,000 UNIT/ML 1 ML SYRINGE SUBCUT SCH ×2 (09:34→21:58)
[2019-01-07] MEDS: CEFTRIAXONE 1 GM/D5W RTU 1 GM/50 ML RTUPB IV SCH (09:34)
[2019-01-07 09:41] LABS: ABSOLUTE LYMPHOCYTES (AUTO) 2.9 10^3/uL (0.5-4.7); ABSOLUTE MONOCYTES (AUTO) 1.2 10^3/uL (0.1-1.4); ABSOLUTE NEUT (AUTO) 13.2 10^3/uL (1.7-8.2); BASOPHILS % (AUTO) 0.1 % (0-2); EOSINOPHILS % (AUTO) 0.2 % (0-6); HEMATOCRIT 40.3 % (36.0-47.0); HEMOGLOBIN 13.2 g/dL (12.0-15.5); LYMPHOCYTES % (AUTO) 16.9 % (13-45); MEAN CORPUSCULAR HGB CONC 32.8 g/dL (32.0-36.0); MEAN CORPUSCULAR VOLUME 89 fl (80-97); MONOCYTES % (AUTO) 6.7 % (3-13); PLATELET COUNT 286 10^3/uL (150-450); RED BLOOD COUNT 4.56 10^6/uL (3.72-5.28); SEGMENTED NEUTROPHILS % (AUTO) 76.1 % (42-78); TOTAL CELLS COUNTED % (AUTO) 100 %; WHITE BLOOD COUNT 17.4 10^3/uL (4.0-10.5)
[2019-01-07] MEDS ORDERED: AZITHROMYCIN 500 MG in DEXTROSE 5%-WATER 250 ML IV SCH (10:00)
[2019-01-07 10:06] LABS: ALANINE AMINOTRANSFERASE 20 U/L (9-52); ALKALINE PHOSPHATASE 65 U/L (38-126); ANION GAP 7 (5-19); ASPARTATE AMINO TRANSFERASE 17 U/L (14-36); BILIRUBIN,DIRECT 0.2 mg/dL (0.0-0.4); BILIRUBIN,TOTAL 0.2 mg/dL (0.2-1.3); BLOOD UREA NITROGEN 12 mg/dL (7-20); CALCIUM 8.7 mg/dL (8.4-10.2); CARBON DIOXIDE 31 mmol/L (22-30); CHLORIDE 103 mmol/L (98-107); GLUCOSE 157 mg/dL (75-110); POTASSIUM 3.9 mmol/L (3.6-5.0); SODIUM 140.7 mmol/L (137-145); TOTAL PROTEIN 5.8 g/dL (6.3-8.2)
--- NOTE | 2019-01-07 10:30 | RADIOLOGY REPORT (SQ) ---
EXAM DESCRIPTION: CHEST 2 VIEWS COMPLETED DATE/TIME: 01/07/2019 10:21 am REASON FOR STUDY: pneumonia COMPARISON: 01/05/2019 EXAM PARAMETERS: NUMBER OF VIEWS: two views TECHNIQUE: Digital Frontal and Lateral radiographic views of the chest acquired. RADIATION DOSE: NA LIMITATIONS: none FINDINGS: LUNGS AND PLEURA: Bilateral infiltrates. This involves much of the right lung apparent sl ight perihilar predominance on the left. The overall appearance is slightly improved compared to the earlier study. MEDIASTINUM AND HILAR STRUCTURES: No masses or contour abnormalities. HEART AND VASCULAR STRUCTURES: Heart normal size. No evidence for failure. BONES: No acute findings. HARDWARE: None in the chest. OTHER: No other significant finding. IMPRESSION: Bilateral pneumonias. No mass. TECHNICAL DOCUMENTATION: JOB ID: [id number] [employer]- All Rights Reserved Reading location - IP/workstation name: [email or web address]
[2019-01-07] MEDS: NORMAL SALINE 1000 ML 1,000 ML IV PRN (21:54)
[2019-01-08] MEDS: IPRATROPIUM/ALBUTEROL 0.5-2.5 MG/3 ML AMPUL NEB SCH ×2 (04:17→07:30)
[2019-01-08 04:34] LABS: HEMATOCRIT 37.6 % (36.0-47.0); HEMOGLOBIN 12.4 g/dL (12.0-15.5); MEAN CORPUSCULAR HEMOGLOBIN 28.9 pg (27.0-33.4); MEAN CORPUSCULAR HGB CONC 33.1 g/dL (32.0-36.0); MEAN CORPUSCULAR VOLUME 87 fl (80-97); PLATELET COUNT 288 10^3/uL (150-450); RED CELL DISTRIBUTION WIDTH 14.6 % (11.5-14.0)
[2019-01-08 05:03] LABS: ALANINE AMINOTRANSFERASE 22 U/L (9-52); ALBUMIN 2.7 g/dL (3.5-5.0); ALKALINE PHOSPHATASE 57 U/L (38-126); ANION GAP 7 (5-19); ASPARTATE AMINO TRANSFERASE 13 U/L (14-36); BILIRUBIN,DIRECT 0.2 mg/dL (0.0-0.4); BILIRUBIN,TOTAL 0.2 mg/dL (0.2-1.3); BLOOD UREA NITROGEN 11 mg/dL (7-20); CALCIUM 8.2 mg/dL (8.4-10.2); CARBON DIOXIDE 29 mmol/L (22-30); CHLORIDE 103 mmol/L (98-107); GLUCOSE 103 mg/dL (75-110); POTASSIUM 4.2 mmol/L (3.6-5.0); SODIUM 139.2 mmol/L (137-145); TOTAL PROTEIN 5.4 g/dL (6.3-8.2)
[2019-01-08 05:06] LABS: ABSOLUTE LYMPHOCYTES# (MANUAL) 4.3 10^3/uL (0.5-4.7); ABSOLUTE MONOCYTES # (MANUAL) 0.8 10^3/uL (0.1-1.4); BAND NEUTROPHILS % (MANUAL) 2 % (3-5); BASOPHILS % (MANUAL) 0 % (0-2); EOSINOPHILS % (MANUAL) 5 % (0-6); LYMPHOCYTES % (MANUAL) 31 % (13-45); MONOCYTES % (MANUAL) 6 % (3-13); SEGMENTED NEUTROPHILS % (MAN) 56 % (42-78); TOTAL CELLS COUNTED 100
[2019-01-08 05:07] LABS: ANISOCYTOSIS SLIGHT; PLATELET COMMENT ADEQUATE
[2019-01-08 06:35] LABS: ARTERIAL BLOOD BASE EXCESS 2.1 mmol/L; ARTERIAL BLOOD HCO3 28.2 mmol/L (20-24); ARTERIAL BLOOD PCO2 49.7 mmHg (35-45); ARTERIAL BLOOD PH 7.37 (7.35-7.45); ARTERIAL BLOOD PO2 72.2 mmHg (80-100); ARTERIAL BLOOD TOTAL CO2 29.7 mmol/L (21-25)
[2019-01-08 06:36] LABS: ARTERIAL BLOOD FIO2 28%
[2019-01-08 08:43] VITALS: BP 149/67
[2019-01-08] MEDS ORDERED: PREDNISONE 20 MG TABLET PO SCH (10:00)
--- NOTE | 2019-01-08 12:19 | PDOC DISCHARGE SUMMARY ---
General - Admit/Disc Date/PCP Admission Date/Primary Care Provider: 01/05/19 15:05 Discharge Date: 01/08/19 - Discharge Diagnosis (1) Acute respiratory failure with hypoxia Is this a current diagnosis for this admission?: Yes Summary: Currently saturating at 94 to 95% on nasal cannula. Secondary to multifocal pneumonia. 01/06: She says her shortness of breath has slightly improved today. Saturating well on nasal cannula. 01/07/2019-patient admitted with acute respiratory failure with hypoxia most likely secondary to multifocal pneumonia. Improving. Pulse ox is 92% on 3 L this morning. Comfortable in the bed communicating well. plan is to continue the present management for now. [id number]-old female admitted for acute respiratory failure with hypoxia most likely secondary to multifocal pneumonia. Pulse ox is 98% on 2 L. Patient did not require oxygen at home. Discharge her home on levo floxacillin 500 mg p.o. daily for 10 days. Patient is strongly advised to follow-up with primary care physician in 3 to 5 days. (2) Multifocal pneumonia Is this a current diagnosis for this admission?: Yes Summary: Likely community-acquired. Noted chest CT results. Azithromycin and Rocephin. Add scheduled breathing treatments. Will also order sputum culture. 01/06: Continue IV antibiotics. Continue scheduled breathing treatments. Sputum culture pending. 01/07/2019-patient is admitted with multifocal pneumonia presently on azithromycin and IV Rocephin receiving scheduled breathing treatments. Sputum culture is pending blood cultures are negative. Plan is to repeat the chest x- ray and labs tomorrow. Pneumonia most likely community-acquired and most likely gram-positive organisms are responsible. 01/08/2019-patient was admitted with multifocal pneumonia treated with IV azithromycin and IV Rocephin and received scheduled nebulizer treatments. Blood cultures are negative and sputum culture showing few gram-positive cocci, gram negative diplococci patient is going home on levofloxacin 500 mg p.o. daily for 10 days. (3) Morbid obesity with BMI of 50.0-59.9, adult Is this a current diagnosis for this admission?: No (4) Tobacco abuse Is this a current diagnosis for this admission?: No - Additional Information Resuscitation Status: Full Code Discharge Diet: Cardiac Discharge Activity: Activity As Tolerated Prescriptions: Levofloxacin [Levaquin 500 mg Tablet] 500 mg PO DAILY #10 tablet Home Medications: Levofloxacin [Levaquin 500 mg Tablet] 500 mg PO DAILY #10 tablet 01/08/19 History of Present Illness History of Present Illness: NELIA NAQVI is a 40 year old female 38 year old female with no significant past medical history aside from a history of chronic smoking and GERD who presented with productive cough and shortness of breath. Patient says that she has been apparently fine until the past 3 days when she started developing increasingly productive cough with yellowish sputum. This was associated with progressive shortness of breath. She also reported having wheezing, fever and chills at home. Patient denies recent hospitalization. 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 Denies recent sick contacts in the family. In the ER, she was noted to be tachypneic, tachycardic and wheezy. Her sats were as low as 90% on room air. She was placed on nasal cannula. She got breathing treatments and IV steroids and she did say she got relief from them. Chest x-ray shows bilateral pneumonia, questionable left-sided mass. Chest CT was pursued and showed extensive multifocal pneumonia. Upon encounter, she appears more comfortable and says that she feels better after the breathing treatments. Physical Exam Vital Signs: Temp Pulse Resp BP Pulse Ox 98.6 F 105 H 19 149/67 H 95 01/08/19 08:42 01/08/19 08:42 01/08/19 08:42 01/08/19 08:42 01/08/19 08:42 Intake & Output 01/07/19 01/08/19 01/09/19 06:59 06:59 06:59 Intake Total 19912 Balance 19912 Weight 143.7 kg General appearance: PRESENT: no acute distress, obese Head exam: PRESENT: atraumatic Eye exam: PRESENT: PERRLA Mouth exam: PRESENT: moist, tongue midline Teeth exam: PRESENT: poor dentation Neck exam: ABSENT: carotid bruit, JVD, lymphadenopathy, thyromegaly Respiratory exam: PRESENT: clear to auscultation idania. ABSENT: rales, rhonchi, wheezes Cardiovascular exam: PRESENT: RRR. ABSENT: diastolic murmur, rubs, systolic murmur GI/Abdominal exam: PRESENT: normal bowel sounds, soft. ABSENT: distended, guarding, mass, organolmegaly, rebound, tenderness Rectal exam: PRESENT: deferred Neurological exam: PRESENT: alert, awake, oriented to person, oriented to place, oriented to time, oriented to situation, CN II-XII grossly intact. ABSENT: motor sensory deficit Psychiatric exam: PRESENT: appropriate affect, normal mood. ABSENT: homicidal ideation, suicidal ideation Results Laboratory Results: 01/08/19 03:45 01/08/19 03:45 01/08/19 01/08/19 01/08/19 03:45 03:45 06:15 WBC 14.0 H RBC 4.30 Hgb 12.4 Hct 37.6 MCV 87 MCH 28.9 MCHC 33.1 RDW 14.6 H Plt Count 288 Seg Neutrophils % Not Reportable Lymphocytes % Not Reportable Monocytes % Not Reportable Eosinophils % Not Reportable Basophils % Not Reportable Absolute Neutrophils Not Reportable Absolute Lymphocytes Not Reportable Absolute Monocytes Not Reportable Absolute Eosinophils Not Reportable Absolute Basophils Not Reportable Carbonic Acid 1.50 H HCO3/H2CO3 Ratio 18:1 ABG pH 7.37 ABG pCO2 49.7 H ABG pO2 72.2 L ABG HCO3 28.2 H ABG O2 Saturation 94.0 ABG Base Excess 2.1 FiO2 28% Sodium 139.2 Potassium 4.2 Chloride 103 Carbon Dioxide 29 Anion Gap 7 BUN 11 Creatinine 0.61 Est GFR ( Amer) > 60 Est GFR (Non-Af Amer) > 60 Glucose 103 Calcium 8.2 L Magnesium 2.0 Total Bilirubin 0.2 AST 13 L ALT 22 Alkaline Phosphatase 57 Total Protein 5.4 L Albumin 2.7 L 01/05/19 11:09 NT-Pro-B Natriuret Pep 613 H Impressions: Chest CT 01/05/19 14:25 IMPRESSION: Bilateral patchy consolidation involving both upper and lower lobes, more confluent in the left parahilar region. No mass identified. Chest X-Ray 01/07/19 00:00 IMPRESSION: Bilateral pneumonias. No mass. Qualifiers - * PATIENT BEING DISCHARGED WITH ANY OF THE FOLLOWING DIAGNOSIS: No VTE patient discharged on overlapping Therapy?: No Acute Heart Failure - Is this a Heart Failure Patient?: No Plan Discharge Plan: Patient is going home today. Time Spent: Greater than 30 Minutes
[2019-01-10 08:01] LABS: MYCOPLASMA PNEUMONIAE IGG AB 223 U/mL (0-99); MYCOPLASMA PNEUMONIAE IGM AB <770 U/mL (0-769)
--- NOTE | 2019-01-13 14:16 | PDOC CONSULTATION ---
Consultation Consult Date: 01/06/19 Attending physician:: CHRISTI MILNER Provider Consulted: NADIYA SANTOS Consult reason:: pna History of Present Illness Admission Date/PCP: 01/05/19 15:05 History of Present Illness: NELIA NAQVI is a 38 year old female, admitted through the emergency room after 4 days of increasing shortness of breath and a cough productive of yellow phlegm at the time of presentation her saturations in the low 90s and she did not respond to bronchodilator therapy subsequent chest x-ray and CT scan show to have a multifocal pneumonia. She was admitted for supplemental oxygen and vigorous treatment of her pneumonia she denies hemoptysis PPD was negative dates unknown she denies having history of chronic lung disease as a child or ado lescent she admits to exposure to passive smoke as a child andas an adult she states she has smoked 2pd x 25yrs she denies any significant occupational exposure to potential respiratory toxins she has 1 dog and no recent travel no angina-like chest pain sleeps on 2 pillows no PND rare nocturnal cough rare edema admits to snoring but denies restless sleep admits to nocturia 1-2 times per night but denies denies unrestful sleep or excessive daytime somnolence. Past Medical History Cardiac Medical History: Denies: Atrial Fibrillation, Congestive Heart Failure, Pulmonary Embolism Pulmonary Medical History: Reports: Pneumonia, Respiratory Failure Denies: Asthma, Bronchitis, Tuberculosis EENT Medical History: Denies: Cataracts Neurological Medical History: Denies: Hemorrhagic CVA, Ischemic CVA, Multiple Sclerosis, Seizures Endocrine Medical History: Denies: Hyperthyroidism, Hypothyroidism Malignancy Medical History: Reports: None GI Medical History: Denies: Crohn's Disease, Ulcerative Colitis Musculoskeltal Medical History: Denies: Arthritis, Gout Skin Medical History: Denies: Eczema, Psoriasis Psychiatric Medical History: Reports: None Traumatic Medical History: Denies: Gunshot Wound, Pneumothorax Hematology: Denies: Sickle Cell Disease Infectious Medical History: Denies: Clostridium Difficile Past Surgical History Past Surgical History: Reports: Orthopedic Surgery Social History Information Source: Patient, [facility] Records Smoking Status: Current Every Day Smoker Cigarettes Packs Per Day: 2 Number of Years Smokin Passive smoke exposure as: Both Frequency of Alcohol Use: None Hx Recreational Drug Use: No Hx Prescription Drug Abuse: No Do you have pets?: Yes Have you had any respiratory illnesses as a child?: No Have you been exposed to any sick contacts recently?: No Have you had any recent respiratory illnesses?: Yes Have you travelled outside of [place] in the past 12 months?: No - Advance Directive Resuscitation Status: Full Code Family History Family History: DM, Hypertension, Malignancy Parental Family History Reviewed: Yes Children Family History Reviewed: Yes Sibling(s) Family History Reviewed.: Yes Medication/Allergy Home Medications: Levofloxacin [Levaquin 500 mg Tablet] 500 mg PO DAILY #10 tablet 01/08/19 Allergies/Adverse Reactions: No Known Allergies Allergy (Verified 01/05/19 09:53) Review of Systems Constitutional: PRESENT: chills, fatigue. ABSENT: anorexia, headache(s), night sweats Eyes: ABSENT: visual disturbances Ears: ABSENT: hearing changes Nose, Mouth, and Throat: ABSENT: mouth pain, sore throat Cardiovascular: PRESENT: dyspnea on exertion. ABSENT: orthropnea, palpitations Respiratory: PRESENT: cough, dyspnea, sputum. ABSENT: hemoptysis Gastrointestinal: ABSENT: abdominal pain, bloating, coffee ground emesis, dysphagia, hematemesis, hematochezia, melena Genitourinary: ABSENT: dysuria, hematuria Musculoskeletal: ABSENT: joint swelling Integumentary: ABSENT: lesions, pruritus Neurological: ABSENT: abnormal gait, abnormal movements, abnormal speech, confusion, focal weakness, frequent falls, lack of coordination, memory loss Psychiatric: ABSENT: hallucinations, homidical ideation, suicidal ideation Endocrine: ABSENT: cold intolerance, heat intolerance, polydipsia, polyuria Hematologic/Lymphatic: ABSENT: easy bruising, lymphadenopathy Allergic/Immunologic: ABSENT: seasonal rhinorrhea Physical Exam Vital Signs: Temp Pulse Resp BP Pulse Ox 98.2 F 84 18 124/54 L 91 L 01/06/19 03:14 01/06/19 07:00 01/06/19 03:47 01/06/19 03:14 01/06/19 03:47 Intake & Output 01/05/19 01/06/19 01/07/19 06:59 06:59 06:59 Intake Total 1640 Balance 1640 Weight 141.5 kg General appearance: PRESENT: no acute distress, cooperative, disheveled, morb idly obese Head exam: PRESENT: atraumatic, normocephalic Eye exam: PRESENT: conjunctiva pale, EOMI. ABSENT: nystagmus Mouth exam: PRESENT: dry mucosa, neck supple Neck exam: ABSENT: carotid bruit, full ROM, JVD, lymphadenopathy, meningismus, tenderness, thyromegaly, tracheal deviation, tracheostomy, other Respiratory exam: PRESENT: decreased breath sounds, prolonged expiratory phas, rales, rhonchi, symmetrical, unlabored. ABSENT: retraction, stridor, tachypnea Cardiovascular exam: PRESENT: RRR, +S1, +S2 Pulses: PRESENT: normal radial pulses GI/Abdominal exam: PRESENT: soft. ABSENT: mass, tenderness Gentrourinary exam: PRESENT: indwelling catheter Extremities exam: ABSENT: calf tenderness, clubbing, joint swelling Musculoskeletal exam: ABSENT: deformity, dislocation Neurological exam: PRESENT: alert, awake Psychiatric exam: PRESENT: appropriate affect Skin exam: PRESENT: dry, warm Results Laboratory Results: 01/05/19 11:09 01/05/19 11:09 01/05/19 01/05/19 01/05/19 11:09 11:09 11:09 WBC 14.6 H RBC 5.03 Hgb 14.8 Hct 43.7 MCV 87 MCH 29.4 MCHC 33.8 RDW 14.3 H Plt Count 215 Seg Neutrophils % 88.7 H Lymphocytes % 5.6 L Monocytes % 4.9 Eosinophils % 0.4 Basophils % 0.4 Absolute Neutrophils 12.9 H Absolute Lymphocytes 0.8 Absolute Monocytes 0.7 Absolute Eosinophils 0.1 Absolute Basophils 0.1 VBG pH VBG pCO2 VBG HCO3 VBG Base Excess Sodium 139.1 Potassium 4.1 Chloride 101 Carbon Dioxide 31 H Anion Gap 7 BUN 7 Creatinine 0.65 Est GFR ( Amer) > 60 Est GFR (Non-Af Amer) > 60 Glucose 119 H Lactic Acid 1.1 Calcium 8.8 Total Bilirubin 0.4 AST 30 ALT 22 Alkaline Phosphatase 68 Total Protein 6.4 Albumin 3.3 L Lipase 12.9 L Urine Color Urine Appearance Urine pH Ur Specific Union Urine Protein Urine Glucose (UA) Urine Ketones Urine Blood Urine Nitrite Ur Leukocyte Esterase Urine WBC (Auto) Urine RBC (Auto) 01/05/19 01/05/19 11:09 11:09 WBC RBC Hgb Hct MCV MCH MCHC RDW Plt Count Seg Neutrophils % Lymphocytes % Monocytes % Eosinophils % Basophils % Absolute Neutrophils Absolute Lymphocytes Absolute Monocytes Absolute Eosinophils Absolute Basophils VBG pH 7.40 VBG pCO2 52.2 VBG HCO3 31.2 VBG Base Excess 4.9 Sodium Potassium Chloride Carbon Dioxide Anion Gap BUN Creatinine Est GFR ( Amer) Est GFR (Non-Af Amer) Glucose Lactic Acid Calcium Total Bilirubin AST ALT Alkaline Phosphatase Total Protein Albumin Lipase Urine Color LORI Urine Appearance CLEAR Urine pH 7.0 Ur Specific Union 1.020 Urine Protein 100 H Urine Glucose (UA) NEGATIVE Urine Ketones TRACE H Urine Blood NEGATIVE Urine Nitrite NEGATIVE Ur Leukocyte Esterase NEGATIVE Urine WBC (Auto) 1 Urine RBC (Auto) 6 01/05/19 11:09 NT-Pro-B Natriuret Pep 613 H Impressions: Chest X-Ray 01/05/19 10:06 IMPRESSION: Diffuse right lung pneumonia. Poorly defined mass versus round pneumonia on the left. Chest CT 01/05/19 14:25 IMPRESSION: Bilateral patchy consolidation involving both upper and lower lobes, more confluent in the left parahilar region. No mass identified. Assessment & Plan - Diagnosis (1) Bilateral pneumonia Qualifiers: Pneumonia type: due to unspecified organism Lung location: upper lobe of lung Qualified Code(s): J18.1 - Lobar pneumonia, unspecified organism Is this a current diagnosis for this admission?: Yes Plan: To be fairly dense per CT scan as well as chest x-ray for atypicals and communi ty-acquired pneumonia (2) Morbid obesity with BMI of 50.0-59.9, adult Is this a current diagnosis for this admission?: Yes Plan: Consider nutritional consult (3) Tobacco abuse Is this a current diagnosis for this admission?: Yes Plan: Stop smoking we discussed at length risk and dangers associated with continued tobacco use
== END 2019-01-08 10:40 | disposition home or self-care (01) | DRG 193 ==
LOC: ER 09:52 → EH 15:05 → 3W 18:26
PROVIDERS: ADMIT Internal Medicine; ATTEND Internal Medicine
DX: J18.1 Lobar pneumonia, unspecified organism (principal); J96.01 Acute respiratory failure with hypoxia; Z68.43 Body mass index [BMI] 50.0-59.9, adult; F17.210 Nicotine dependence, cigarettes, uncomplicated; K21.9 Gastro-esophageal reflux disease without esophagitis; E66.01 Morbid (severe) obesity due to excess calories
CPT/HCPCS: 36415; 36600; 71045; 71046; 71260; 80053; 81001; 81025; 82803; 83036; 83605; 83690; 83735; 83880; 85025; 86738; 87040; 87070; 87205; 93005; 93010; 94640; 94667; 94668; 96361; 96374; 96375; 99291; J0456; J0696; J1644; J2405; J2930; J7030; J7060; J7512; J7620